=== PATIENT | male | born 1970 | race Caucasian/White ===

== ENCOUNTER 2024-11-22 11:20 | Inpatient (IN) | payer BC ==
[~2024-11-22] VITALS: Ht 180.3 cm; Wt 76.0 kg
[2024-11-22 12:03] LABS: HEMATOCRIT. 40.7 % (42.0-52.0); HEMOGLOBIN. 13.9 g/dL (14.0-18.0); MEAN CORPUSCULAR HEMOGLOBIN 30.9 pg (28.0-32.0); MEAN CORPUSCULAR HGB CONC 34.2 g/dL (31.0-37.0); MEAN CORPUSCULAR VOLUME 90.4 fL (80.0-94.0); MEAN PLATELET VOLUME 10.7 fl (7.4-10.4); PLATELET 279 x1000/uL (130-400); RED CELL DISTRIBUTION WIDTH 13.1 % (11.6-14.6); WHITE BLOOD COUNT 19.7 x1000/uL (4.5-11.0)
[2024-11-22] MEDS: LACTATED RINGERS 1,000 ML IV SCH ×2 (12:04→14:18)
[2024-11-22 12:05] LABS: DIFFERENTIAL COMMENT 1
[2024-11-22] MEDS: METOCLOPRAMIDE HCL 10MG/2ML VIAL IV ONE (12:12)
[2024-11-22 12:19] LABS: CHLORIDE 86 mEq/L (98-107); POTASSIUM 4.1 mEq/L (3.5-5.1); SODIUM 127 mEq/L (136-145)
[2024-11-22 12:20] LABS: CALCIUM 9.9 mg/dL (8.7-10.4); CARBON DIOXIDE 21 mEq/L (21-32)
[2024-11-22 12:25] LABS: CREATININE 1.7 mg/dL (0.6-1.3); GLUCOSE 353 mg/dL (70-105); UREA NITROGEN BLOOD 34 mg/dL (9-23)
[2024-11-22 12:27] LABS: ALANINE AMINOTRANSFERASE 31 IU/L (10-49); ALBUMIN 4.9 g/dL (3.2-4.8); ASPARTATE AMINOTRANSFERASE 25 IU/L (<34); BILIRUBIN DIRECT 0.4 mg/dL (<=3.0); BILIRUBIN TOTAL 1.5 mg/dL (0.1-1.0); PROTEIN TOTAL 7.7 g/dL (6.0-8.3)
[2024-11-22 12:42] LABS: PLATELET ESTIMATE NORMAL
[2024-11-22 13:51] LABS: BG BASE EXCESS 0.5 mmol/L (-2.0-3.0); BG CARBOXYHEMOGLOBIN 0.4 % (0.5-1.5); BG DEOXYHEMOGLOBIN 1.8 % (0.0-5.0); BG FRACTION INSPIRED OXYGEN 21; BG HCO3 ACT 18.7 mmol/L (21.0-28.0); BG METHEMOGLOBIN 0.2 % (0.5-1.5); BG OXYGEN SATURATION 98.2 % (94.0-98.0); BG OXYHEMOGLOBIN 97.6 % (94.0-98.0); BG PCO2 17.8 mmHg (35.0-48.0); BG PO2 106.2 mmHg (83.0-108.0); BG SAMPLE SITE LEFT RADIAL; BG VENT MODE ROOM AIR
[2024-11-22] MEDS: INSULIN REGULAR (HUMULIN R) 1000UNITS/10ML VIAL IV ONE (14:15)
[2024-11-22] MEDS: ONDANSETRON HCL 4MG/2ML INJ IV ONE (14:50)
[2024-11-22 16:00] VITALS: BP 180/100; PULSE 100; RESP 18; TEMP 37.5; O2SAT 99
[2024-11-22] MEDS: PANTOPRAZOLE SODIUM 40 MG/VIAL IV SCH (16:00)
[2024-11-22] MEDS ORDERED: IPRATROPIUM/ALBUTEROL 0.5-3(2.5)MG/3ML NEB HHN PRN (16:00)
[2024-11-22] MEDS ORDERED: DEXTROSE 50% WATER 50ML SYRINGE IV PRN (16:00)
[2024-11-22] MEDS ORDERED: ACETAMINOPHEN 325MG TABLET PO PRN ×2 (16:00)
[2024-11-22] MEDS ORDERED: CAPSAICIN 0.025% CREAM 60GM TOP PRN (16:00)
[2024-11-22] MEDS ORDERED: DOCUSATE SODIUM 100MG CAPSULE PO PRN (16:00)
[2024-11-22] MEDS ORDERED: GUAIFENESIN 200MG/10ML SUGAR FREE UDC PO PRN (16:00)
[2024-11-22] MEDS ORDERED: MAGNESIUM/ALUMINUM HYDROXIDE/SIMETHICONE 30ML UDC PO PRN (16:00)
[2024-11-22] MEDS: HALOPERIDOL LACTATE 5MG/ML VIAL IM SCH (16:22)
[2024-11-22] MEDS: LISINOPRIL 10MG TABLET PO SCH (16:23)
[2024-11-22] MEDS: CLONIDINE 0.1MG TABLET PO PRN (16:23)
[2024-11-22 17:00] VITALS: BP 125/66; PULSE 88; RESP 16; TEMP 37
[2024-11-22] MEDS: BLOOD SUGAR DIAGNOSTIC STRIP TEST SCH (17:44)
[2024-11-22] MEDS: ONDANSETRON HCL 4MG/2ML INJ IV PRN (17:44)
[2024-11-22] MEDS: INSULIN LISPRO 100 UNITS/ML SUBCUT SCH (17:58)
[2024-11-22] MEDS ORDERED: LISI20TA31 MT (18:18)
[2024-11-22] MEDS ORDERED: METO10TA3 PO (18:18)
[2024-11-22] MEDS ORDERED: ATOR40TA70 MT (18:18)
[2024-11-22 20:00] VITALS: BP 160/90; PULSE 96; RESP 18; TEMP 36.8; O2SAT 98
[2024-11-23] VITALS: BP 149/89; PULSE 91; RESP 18; TEMP 36.7; O2SAT 100
[2024-11-23] MEDS: SODIUM CHLORIDE 0.9% 1,000 ML IV SCH (01:55)
[2024-11-23 04:00] VITALS: BP 167/95; PULSE 91; RESP 18; TEMP 37.1; O2SAT 100
[2024-11-23 08:00] VITALS: BP 165/94; PULSE 87; RESP 19; TEMP 37.1; O2SAT 100
[2024-11-23 10:19] LABS: BASOPHILS % 0.1 % (0.0-2.0); HEMATOCRIT. 34.6 % (42.0-52.0); HEMOGLOBIN. 11.9 g/dL (14.0-18.0); LYMPHOCYTES % 7.7 % (20.0-50.0); MEAN CORPUSCULAR HEMOGLOBIN 30.5 pg (28.0-32.0); MEAN CORPUSCULAR HGB CONC 34.2 g/dL (31.0-37.0); MEAN CORPUSCULAR VOLUME 89.2 fL (80.0-94.0); MEAN PLATELET VOLUME 11.1 fl (7.4-10.4); MONOCYTES % 7.7 % (2.0-8.0); NEUTROPHILS % 84.5 % (40.0-76.0); PLATELET 211 x1000/uL (130-400); RED BLOOD CELL COUNT 3.89 mill/uL (4.7-6.1); RED CELL DISTRIBUTION WIDTH 12.4 % (11.6-14.6); WHITE BLOOD COUNT 14.1 x1000/uL (4.5-11.0)
[2024-11-23 10:38] LABS: POTASSIUM 3.1 mEq/L (3.5-5.1)
[2024-11-23 10:39] LABS: CALCIUM 8.6 mg/dL (8.7-10.4)
[2024-11-23 10:40] LABS: T4 FREE 1.44 ng/dL (0.89-1.76); THYROID STIMULATING HORMONE 0.59 uIU/mL (0.55-4.78)
[2024-11-23 10:43] LABS: CREATININE 1.4 mg/dL (0.6-1.3)
[2024-11-23 11:15] VITALS: BP 128/84; PULSE 89; TEMP 98.5; O2SAT 99
== END 2024-11-23 12:30 | disposition home or self-care (01) | DRG 872 ==
LOC: ER 11:20 → EDBEDREQ 13:53 → 6WST 14:43 → EDBEDREQ 14:50
PROVIDERS: ADMIT Internal Medicine; ATTEND Internal Medicine
DX: A41.9 Sepsis, unspecified organism (principal); E87.1 Hypo-osmolality and hyponatremia; E87.4 Mixed disorder of acid-base balance; R17 Unspecified jaundice; N17.9 Acute kidney failure, unspecified; E11.65 Type 2 diabetes mellitus with hyperglycemia; I10 Essential (primary) hypertension; I16.0 Hypertensive urgency; F12.90 Cannabis use, unspecified, uncomplicated; E86.0 Dehydration; Z79.899 Other long term (current) drug therapy; Z79.4 Long term (current) use of insulin
CPT/HCPCS: 36415; 36600; 74176; 80048; 80061; 80076; 82010; 82375; 82805; 82962; 83036; 83605; 84145; 84439; 84443; 85025; 99291; A4606; J1630; J1815; J2405; J2470; J2765; J7030

== ENCOUNTER 2024-11-24 08:06 | Inpatient (IN) | payer BC ==
[~2024-11-24] VITALS: Ht 172.7 cm; Wt 74.8 kg
[~2024-11-24 08:06] MED LIST: ATOR40TA70 MT; LISI20TA31 MT; METO10TA3 PO
[2024-11-24 09:49] LABS: BASOPHILS % 0.1 % (0.0-2.0); HEMATOCRIT. 38.1 % (42.0-52.0); HEMOGLOBIN. 12.8 g/dL (14.0-18.0); MEAN CORPUSCULAR HEMOGLOBIN 30.3 pg (28.0-32.0); MEAN CORPUSCULAR HGB CONC 33.6 g/dL (31.0-37.0); MEAN CORPUSCULAR VOLUME 90.4 fL (80.0-94.0); MEAN PLATELET VOLUME 10.2 fl (7.4-10.4); MONOCYTES % 9.2 % (2.0-8.0); NEUTROPHILS % 76.7 % (40.0-76.0); PLATELET 209 x1000/uL (130-400); RED BLOOD CELL COUNT 4.22 mill/uL (4.7-6.1); WHITE BLOOD COUNT 8.7 x1000/uL (4.5-11.0)
[2024-11-24] MEDS: TETANUS, DIPHTHERIA, PERTUSSIS VAC/PF 0.5ML (>10YR OLD) IM ONE (09:52)
[2024-11-24 09:56] LABS: CHLORIDE 93 mEq/L (98-107); POTASSIUM 3.6 mEq/L (3.5-5.1); SODIUM 130 mEq/L (136-145)
[2024-11-24 09:57] LABS: CALCIUM 9.2 mg/dL (8.7-10.4); CARBON DIOXIDE 24 mEq/L (21-32)
[2024-11-24 10:02] LABS: CREATININE 1.7 mg/dL (0.6-1.3); UREA NITROGEN BLOOD 30 mg/dL (9-23)
[2024-11-24 10:03] LABS: TROPONIN I HIGH SENSITIVITY 45 ng/L (3.0-53)
[2024-11-24 10:09] LABS: GLUCOSE 413 mg/dL (70-105)
[2024-11-24] MEDS ORDERED: MAGNESIUM/ALUMINUM HYDROXIDE/SIMETHICONE 30ML UDC PO PRN (11:00)
[2024-11-24] MEDS ORDERED: ACETAMINOPHEN 325MG TABLET PO PRN (11:00)
[2024-11-24] MEDS ORDERED: DOCUSATE SODIUM 100MG CAPSULE PO PRN (11:00)
[2024-11-24] MEDS ORDERED: ONDANSETRON HCL 4MG/2ML INJ IV PRN (11:00)
[2024-11-24] MEDS ORDERED: DEXTROSE 50% WATER 50ML SYRINGE IV PRN (11:00)
[2024-11-24] MEDS ORDERED: GUAIFENESIN 200MG/10ML SUGAR FREE UDC PO PRN (11:00)
[2024-11-24] MEDS ORDERED: IPRATROPIUM/ALBUTEROL 0.5-3(2.5)MG/3ML NEB HHN PRN (11:00)
[2024-11-24] MEDS: SODIUM CHLORIDE 0.9% 1,000 ML IV ONE (11:00)
[2024-11-24] MEDS: INSULIN GLARGINE 100 UNITS/ML SUBCUT SCH (11:00)
[2024-11-24 11:13] LABS: CLARITY URINE CLEAR (CLEAR); COLOR URINE YELLOW (YELLOW); GLUCOSE URINE 3+ (NEGATIVE); KETONES URINE 2+ (NEGATIVE); LEUKOCYTE ESTERASE URINE NEGATIVE (NEGATIVE); NITRITE URINE NEGATIVE (NEGATIVE); OCCULT BLOOD URINE 1+ (NEGATIVE); PH URINE 5.5 (4.5-8.0); PROTEIN URINE 3+ (NEGATIVE); SPECIFIC GRAVITY URINE 1.022 (1.005-1.030); UROBILINOGEN URINE 0.2 E.U./dL (0.2-1.0)
[2024-11-24 11:16] LABS: BETA HYDROXYBUTYRATE 4.1 mMol/L (0.0-0.3)
[2024-11-24 11:22] LABS: BACTERIA URINE NONE SEEN; RBC URINE 0-2 /hpf (0-2); SQUAMOUS EPITHELIAL CELL URINE RARE /lpf (RARE/1+); WBC URINE 0-2 /hpf (0-2); YEAST URINE NONE SEEN
[2024-11-24] MEDS: LISINOPRIL 20MG TABLET PO SCH (11:37)
[2024-11-24] MEDS: AMLODIPINE 10MG TABLET PO SCH (11:37)
[2024-11-24 11:50] LABS: BG DEOXYHEMOGLOBIN 26.6 % (0.0-5.0)
[2024-11-24 11:51] LABS: *AMPHETAMINES SCREEN URINE NEGATIVE (NEGATIVE); *BENZODIAZEPINES SCREEN URINE NEGATIVE (NEGATIVE)
[2024-11-24 11:52] LABS: *BARBITURATES SCREEN URINE NEGATIVE (NEGATIVE); *COCAINE SCREEN URINE NEGATIVE (NEGATIVE); CANNABINOID URINE SCREEN PRESUMPTIVE POSITIVE (NEGATIVE); ECSTASY MDMA SCREEN URINE NEGATIVE (NEGATIVE); METHADONE URINE SCREEN NEGATIVE (NEGATIVE); OPIATES URINE SCREEN NEGATIVE (NEGATIVE); PHENCYCLIDINE URINE SCREEN NEGATIVE (NEGATIVE)
[2024-11-24] MEDS: PANTOPRAZOLE SODIUM 40 MG/VIAL IV SCH (12:00)
[2024-11-24] MEDS: INSULIN REGULAR (HUMULIN R) 1000UNITS/10ML VIAL IV SCH (12:08)
[2024-11-24] MEDS: SODIUM CHLORIDE 0.9% 1,000 ML IV SCH (12:39)
[2024-11-24] MEDS: INSULIN LISPRO 100 UNITS/ML SUBCUT SCH ×2 (12:50→14:08)
[2024-11-24] MEDS: BLOOD SUGAR DIAGNOSTIC STRIP TEST SCH (13:00)
[2024-11-24 13:33] LABS: PHOSPHORUS 1.7 mg/dL (2.5-4.9)
[2024-11-24] MEDS: CLONIDINE 0.1MG TABLET PO PRN (13:49)
[2024-11-24 14:47] VITALS: BP 147/85; PULSE 86; RESP 16; TEMP 36.2; O2SAT 100
[2024-11-24 15:40] VITALS: BP 135/79; PULSE 82
[2024-11-24] MEDS: POTASSIUM PHOSPHATE 20 MMOL in DEXT 5% WATER 243.3333 ML IV SCH (16:46)
[2024-11-24 17:29] VITALS: BP 177/80; PULSE 70; RESP 16; TEMP 36.2
[2024-11-24 17:53] LABS: CREATINE KINASE MB FRACTION 3.5 ng/mL (0.5-3.6)
[2024-11-24 20:21] VITALS: BP 113/71; PULSE 78; RESP 20; TEMP 37.2; O2SAT 99
[2024-11-24] MEDS: ATORVASTATIN CALCIUM 40MG TABLET PO SCH (21:37)
[2024-11-25] VITALS: BP 165/94; PULSE 77; RESP 18; TEMP 35.8; O2SAT 100
[2024-11-25 00:38] LABS: CREATINE KINASE MB FRACTION 3.2 ng/mL (0.5-3.6)
[2024-11-25 04:00] VITALS: BP 113/77; PULSE 75; RESP 18; TEMP 37.3; O2SAT 98
[2024-11-25 06:52] LABS: POTASSIUM 3.2 mEq/L (3.5-5.1)
[2024-11-25 06:53] LABS: CALCIUM 8.4 mg/dL (8.7-10.4)
[2024-11-25 06:57] LABS: CREATININE 1.3 mg/dL (0.6-1.3)
[2024-11-25 06:59] LABS: BASOPHILS % 0.1 % (0.0-2.0); EOSINOPHILS % 0.3 % (0.0-5.0); HEMATOCRIT. 31.7 % (42.0-52.0); HEMOGLOBIN. 10.9 g/dL (14.0-18.0); LYMPHOCYTES % 18.7 % (20.0-50.0); MEAN CORPUSCULAR HGB CONC 34.3 g/dL (31.0-37.0); MEAN CORPUSCULAR VOLUME 90.5 fL (80.0-94.0); MONOCYTES % 8.8 % (2.0-8.0); NEUTROPHILS % 72.1 % (40.0-76.0); PLATELET 184 x1000/uL (130-400); RED CELL DISTRIBUTION WIDTH 12.5 % (11.6-14.6); WHITE BLOOD COUNT 9.1 x1000/uL (4.5-11.0)
[2024-11-25 08:00] VITALS: BP 140/84; PULSE 71; RESP 20; TEMP 36.7; O2SAT 98
[2024-11-25] MEDS: LISINOPRIL 40MG TABLET PO SCH (08:52)
[2024-11-25] MEDS: POTASSIUM CHLORIDE 20MEQ TABLET SR PO SCH (08:54)
[2024-11-25 12:00] VITALS: BP 138/77; PULSE 64; RESP 18; TEMP 36.7; O2SAT 98
[2024-11-25] MEDS ORDERED: LISI40TA13 PO (14:06)
[2024-11-25] MEDS ORDERED: AMLO10TA80 PO (14:06)
[2024-11-25 15:02] VITALS: BP 138/77; PULSE 64; TEMP 98.6; O2SAT 98
[2024-11-25 16:00] VITALS: BP 135/67; PULSE 75; RESP 18; TEMP 36.3; O2SAT 98
== END 2024-11-25 18:00 | disposition home or self-care (01) | DRG 638 ==
LOC: ER 08:06 → EDBEDREQ 10:18 → EDBEDREQTM 10:18 → ENRESERV 11:54 → 7WST 13:01
PROVIDERS: ADMIT Hospitalist; ATTEND Hospitalist
DX: E11.65 Type 2 diabetes mellitus with hyperglycemia (principal); E87.1 Hypo-osmolality and hyponatremia; I16.1 Hypertensive emergency; N17.9 Acute kidney failure, unspecified; D64.9 Anemia, unspecified; N18.9 Chronic kidney disease, unspecified; E86.0 Dehydration; S01.81XA Laceration without foreign body of other part of head, initial encounter; I10 Essential (primary) hypertension; E87.6 Hypokalemia; F12.90 Cannabis use, unspecified, uncomplicated; E78.5 Hyperlipidemia, unspecified; F17.200 Nicotine dependence, unspecified, uncomplicated; Z79.4 Long term (current) use of insulin; Z79.84 Long term (current) use of oral hypoglycemic drugs; X58.XXXA Exposure to other specified factors, initial encounter; Y93.89 Activity, other specified; Y92.89 Other specified places as the place of occurrence of the external cause; Y99.8 Other external cause status
CPT/HCPCS: 36415; 71045; 80048; 80305; 81003; 82010; 82375; 82550; 82553; 82803; 82962; 83036; 83735; 84100; 84484; 85025; 90715; 93005; 93970; 97161; 97166; 99285; J1815; J2470; J3490; J7030; J7060